=== PATIENT | male | born 1955 | race Caucasian/White ===

== ENCOUNTER → 2018-01-10 | Outpatient (CLI) | payer OTHER ==
[~2018-01-10] MED LIST: ALBU90OI; AMOCLA875 PO; AMPDEX10; AMPDEX15CR; AMPDEX5; ERYT.5TO BOTHEYES; FLUT.05NI; HYDACE5325 PO; HYDCHL25; HYDCHL25 PO; IBUP800; IPRAOI; Indomethacin50 MG PO; KETO5OP OD; LAMO100; LAMO25; LISHYD1012; OXYACE5T PO; POLTRIOPSO OD; PRAVASTATIN SOD10 MG PO; Prednisone20 MG PO; QUET25; RANI150; Sudogest30 MG PO; TRAZ50; VENL150ER PO; VENL75ER; Zithromax250 MG PO
[2018-01-10 18:38] LABS: U Amphetamine Screen DETECTED; U Barbituate Screen Not Detected; U Benzodiazapine Screen Not Detected; U Buprenorphine Screen Not Detected; U Cannabinoids Screen Not Detected; U Cocaine Screen Not Detected; U Methadone Screen Not Detected; U Methamphetamine Screen Not Detected; U Opiates Screen Not Detected; U Oxycodone Screen Not Detected; U Phencyclidine Screen Not Detected; U Propoxyphene Screen Not Detected
== END ==
LOC: LAB SHORT 16:02 → LAB 16:02
PROVIDERS: Psychiatry & Neurology Psychiatry
DX: Z51.81 Encounter for therapeutic drug level monitoring (principal); Z79.899 Other long term (current) drug therapy

== ENCOUNTER 2019-04-13 12:22 | Day surgery (SDC) | payer MEDICARE, OTHER ==
[~2019-04-13] VITALS: Ht 172.7 cm; Wt 79.9 kg
[~2019-04-13 12:22] MED LIST changes: +ALLEGRA ALLERGY60 MG PO; +AMPDEX30CR PO; +Adderall 30 MG30 MG PO; +CLOB.05TO TOP; +Colace100 MG PO; +FLONASE ALLERG9.9 ML; -FLUT.05NI; +Flonase 0.05% N16 GM; -LISHYD1012; +Miralax17 GM PO; +OMEP20ER PO; +Omeprazole20 M1 PO; +TRAZ150T57; +TRAZ50 PO; +TUSSIN400 MG PO; +VENL75ER PO; +ZESTORETIC 20-1 EAC1 PO; +ZESTORETIC 20-251 EA PO
--- NOTE | 2019-04-13 14:59 | NUR ---
04/13/19 Angelito Gr LATE ENTRY-DURING PROCEDURE PATIENTS 02 DROPPED DOWN TO 79% JAW THRUST IMPLEMENTED AND O2 INCREASED TO 5LNC AND ANESTHESIA CALL TO ROOM.
== END 2019-04-13 14:20 | disposition home or self-care (01) ==
LOC: ORSCSDS 12:22
PROVIDERS: Student in an Organized Health Care Education/Training Program
PROC: 0DB58ZX Excision of Esophagus, Via Natural or Artificial Opening Endoscopic, Diagnostic (ICD-10-PCS; principal; 2019-04-13 14:15)
PROC: 0DB98ZX Excision of Duodenum, Via Natural or Artificial Opening Endoscopic, Diagnostic (ICD-10-PCS; principal; 2019-04-13 14:15)
PROC: 0DB68ZX Excision of Stomach, Via Natural or Artificial Opening Endoscopic, Diagnostic (ICD-10-PCS; principal; 2019-04-13 14:15)
DX: K21.9 Gastro-esophageal reflux disease without esophagitis (principal); K29.80 Duodenitis without bleeding; K44.9 Diaphragmatic hernia without obstruction or gangrene; K29.70 Gastritis, unspecified, without bleeding; J44.9 Chronic obstructive pulmonary disease, unspecified; E78.2 Mixed hyperlipidemia; G47.33 Obstructive sleep apnea (adult) (pediatric); F17.210 Nicotine dependence, cigarettes, uncomplicated; I10 Essential (primary) hypertension; Z79.899 Other long term (current) drug therapy
CPT/HCPCS: 88305; 88342; J1100; J2405; J2704; J7120

== ENCOUNTER → 2019-11-26 | Outpatient (CLI) | payer MEDICARE, SELFPAY ==
[2019-11-27 14:39] LABS: Stool Occult Bld Immuno 1 Negative (NEGATIVE)
== END ==
LOC: LAB SHORT 17:17 → OLS 17:17 → LAB FUT 04-01 17:05
PROVIDERS: Student in an Organized Health Care Education/Training Program
DX: Z12.11 Encounter for screening for malignant neoplasm of colon (principal)
CPT/HCPCS: G0328

== ENCOUNTER 2020-02-10 19:55 | Emergency (ER) | payer MEDICARE, SELFPAY ==
[~2020-02-10] VITALS: Ht 170.2 cm; Wt 79.4 kg
== END 2020-02-10 20:29 | disposition home or self-care (01) ==
LOC: ER 19:55
DX: R51 Headache (principal); R45.1 Restlessness and agitation; F91.1 Conduct disorder, childhood-onset type; F41.9 Anxiety disorder, unspecified; M54.9 Dorsalgia, unspecified; G89.29 Other chronic pain; F31.9 Bipolar disorder, unspecified; F90.9 Attention-deficit hyperactivity disorder, unspecified type; Z87.891 Personal history of nicotine dependence; Z88.8 Allergy status to other drugs, medicaments and biological substances; Z79.899 Other long term (current) drug therapy
CPT/HCPCS: 93005; 93010; 99283-25

== ENCOUNTER → 2025-06-08 | Outpatient (CLI) | payer OTHER ==
[2025-06-08 21:03] LABS: PSA, %Free 16.9 %; PSA, Free 0.352 ng/mL; Prostate Specific Antigen 2.080 ng/mL (0.000-4.000)
== END | disposition home or self-care (01) ==
LOC: LAB 18:51 → LAB SHORT 18:51
PROVIDERS: Family Medicine
DX: N40.0 Benign prostatic hyperplasia without lower urinary tract symptoms (principal); N13.9 Obstructive and reflux uropathy, unspecified
CPT/HCPCS: 84153; 84154